=== PATIENT | female | born 1990 | race African-American/Black ===

== ENCOUNTER 2017-06-26 01:09 | Emergency (ER) ==
[2017-06-26 01:15] VITALS: TEMP 97.8; BMI 48.0
--- NOTE | 2017-06-26 01:31 | ED.PDOC ---
General ED Provider: Dr. ELAINE SPAIN Chief Complaint: Chest Pain Stated Complaint: Pateint is a 27 year old who is 27 weeks comes to the ER with complaints of epigastric and right upper quadrant pain for 10 hours. States she ate a humberger last evening. States she usually has high blood pressure during her . She recently seen her OBGYN last week and everything was fine. Time Seen by Physician: 01:28 Mode of Arrival: Walk-In Information Source: Patient Exam Limitations: No limitations Nursing and Triage Documentation Reviewed and Agree: Yes GI Complaint Exam - Abdominal Pain Complaint/Exam Onset: Gradual Duration: 10 hours Symptoms Are: Still present Timing: Constant Initial Severity: Moderate Current Severity: Moderate Location of Pain: RUQ, Epigastric Radiates To: Reports: Chest Character: Reports: Aching, Throbbing Aggravating: Reports: Food Associated Signs and Symptoms: Denies: Diaphoresis, Fever, Cough, Chest pain, Dizziness, Back pain, Constipation, Blood in stool, Dysuria, Urinary frequency, Decreased urine output, Decreased appetite, Vaginal bleeding, Vaginal discharge , Nausea, Vomiting, Diarrhea, Sore throat, Decreased activity Ectopic Risk Factors: Reports: None (currently 27 weeks ) Ovarian Torsion Risk Factors: Reports: None Surgical Obstruction Risk Factors: Reports: None Related Surgical History: Reports: None Patient Rh Status: Unknown Abdominal Findings: Present: Pulsatile mass (Gravid- consistent with days). Absent: Abdominal distention, Rebound tenderness, CVA Tenderness Differential Diagnoses: Gastroenteritis, GB, PUD, UTI Review of Systems - Review Of Systems Constitutional: Reports: No symptoms Eyes: Reports: No symptoms Ears, Nose, Mouth, Throat: Reports: No symptoms Respiratory: Reports: No symptoms Cardiac: Reports: Chest pain (epigastric area ) GI: Reports: Abdominal pain (right upper quadrant and epigastric area ) : Reports: No symptoms Musculoskeletal: Reports: No symptoms Skin: Reports: No symptoms Neurological: Reports: Anxiety Endocrine: Reports: No symptoms Hematologic/Lymphatic: Reports: No symptoms All Other Systems: Reviewed and Negative Past Medical History - Past Medical History Previously Healthy: Yes Endocrine: Reports: None Cardiovascular: Reports: Hypertension (gestational ) Respiratory: Reports: None Hematological: Reports: None Gastrointestinal: Reports: None Genitourinary: Reports: None Neuro/Psych: Reports: None Musculoskeletal: Reports: None Cancer: Reports: None Last Menstrual Period: unkown - Surgical History General Surgical History: Reports: None - Family History Family History: Reports: None - Social History Smoking Status: Never smoker Hx Substance Use: No Alcohol Screening: None - Immunizations Tetanus Shot up to Date: Yes Physical Exam - Physical Exam Appearance: Obese Pain Distress: Mild Neck: Supple Respiratory: Airway patent, Breath sounds clear, Breath sounds equal, Respirations nonlabored Cardiovascular: RRR, Pulses normal, No rub, No murmur GI/: Soft, Tender Musculoskeletal: Normal strength, ROM intact, No edema, No calf tenderness Skin: Warm, Dry, Normal color Neurological: Sensation intact, Motor intact, Reflexes intact, Cranial nerves intact, Alert, Oriented Psychiatric: Anxious Interpretation - EKG Interpretation Time of EKG #1: 01:16 Rate: Normal Rhythm: Sinus Ectopy: None [place]: NL ST Segment: Normal Interpretation: normal EKG Re-Evaluation - Re-Evaluation Time of Re-Evaluation: 01:40 Status: Improved Vital Signs Stable: Yes (168/105, 159/98) Pain Level: chest pain gone after Tylenol Appearance: NAD Lungs: Clear Skin: Warm and Dry Neuro: Alert and Oriented X3 Critical Care Note - Critical Care Note Total Time (mins): 0 Course - Course Hematology/Chemistry: 06/26/17 01:40 06/26/17 01:40 Orders, Labs, Meds: Lab Review 06/26/17 06/26/17 01:40 01:56 WBC 5.48 RBC 4.21 Hgb 10.6 L Hct 32.3 L MCV 76.7 L MCH 25.2 L MCHC 32.8 RDW Coeff of Janna 15.8 H Plt Count 207 Immature Gran % (Auto) 0.4 Neut % (Auto) 58.0 Lymph % (Auto) 27.0 Labette % (Auto) 12.0 H Eos % (Auto) 2.2 Baso % (Auto) 0.4 Immature Gran # (Auto) 0.0 Neut # 3.2 Lymph # 1.5 Labette # 0.7 Eos # 0.1 Baso # 0.0 D-Dimer (Manual) 1440.65 Sodium 138 Potassium 3.6 Chloride 110 H Carbon Dioxide 19 L Anion Gap 12.6 BUN 8 Creatinine 0.75 Estimated GFR (MDRD) 112.00 BUN/Creatinine Ratio 10.66 Glucose 86 Calcium 8.6 Total Bilirubin 0.41 AST 28 ALT 18 Alkaline Phosphatase 106 H Troponin I 0.0350 Total Protein 5.5 L Albumin 1.9 L Globulin 3.6 Albumin/Globulin Ratio 0.53 Urine Color Yellow Urine Clarity Clear Urine pH 7.0 Ur Specific [place] 1.020 Urine Protein 3+ Urine Glucose (UA) Negative Urine Ketones Negative Urine Blood 2+ Urine Nitrite Negative Urine Bilirubin Negative Urine Urobilinogen 0.2 Ur Leukocyte Esterase Negative Urine Microscopic RBC 10-20 Ur Squamous Epith Cells 20-30 Amorphous Sediment 1+ Hyaline Casts 2-5 Granular Casts 5-10 Orders Category Date Time Status CBC W/ AUTO DIFF Stat LAB 06/26/17 01:40 Completed COMPREHENSIVE METABOLIC PANEL Stat LAB 06/26/17 01:40 Completed D-DIMER Stat LAB 06/26/17 01:40 Completed TROPONIN I Stat LAB 06/26/17 01:40 Completed URINALYSIS C & S IF INDICATED Stat LAB 06/26/17 01:56 Completed Acetaminophen [Tylenol] MEDS 06/26/17 01:45 Discontinued 1,000 mg PO ONCE STA Enoxaparin Sodium [Lovenox] MEDS 06/26/17 02:43 Discontinued 140 mg SUBCUT ONCE STA Mag Hydrox/Al Hydrox/Simeth [Mylanta Susp] MEDS 06/26/17 01:35 Discontinued 30 ml PO ONCE STA Medications Discontinued Medications Generic Name Dose Route Start Last Admin Trade Name Freq PRN Reason Stop Dose Admin Acetaminophen 1,000 mg 06/26/17 01:45 06/26/17 01:53 Tylenol PO 06/26/17 01:46 1,000 mg ONCE STA Administration Al Hydroxide/Mg Hydroxide 30 ml 06/26/17 01:35 06/26/17 01:41 Mylanta Susp PO 06/26/17 01:36 30 ml ONCE STA Administration Enoxaparin Sodium 140 mg 06/26/17 02:43 06/26/17 02:55 Lovenox SUBCUT 06/26/17 02:44 140 mg ONCE STA Administration Vital Signs: Temp Pulse Resp BP Pulse Ox 06/26/17 02:12 158/98 H 06/26/17 01:39 168/105 H 06/26/17 01:34 184/118 H 06/26/17 01:10 97.8 F 84 20 184/118 H 98 Departure - Departure Time of Disposition: 01:55 Disposition: HOME SELF-CARE Discharge Problem: Chest pain, Epigastric abdominal pain of unknown etiology Hypertension Qualifiers: Hypertension type: other secondary hypertension Qualifier Code: (I15.8) Other secondary hypertension Instructions: Hypertension (ED), Epigastric Pain (ED) Condition: Good Pt referred to PMD for follow-up: Yes (OBGYN in the morning. ) Additional Instructions: Follow up with OBGYN in the Morning at [facility] we cannot rule out a clot in your lung. Your Doctor should be able to tall you what other test to order. If cannot go back to the OBGYN return to the ER in the morning for US of lower extremities. may Take Tylenol for pain. Avoid Fatty foods for now. Allergies/Adverse Reactions: Allergies No Known Allergies Allergy (Verified 08/29/16 21:35) Home Medications: Ambulatory Orders 1 [No Reported Medications] 08/29/16 Disposition Discussed With: Patient, Family
[2017-06-26] MEDS ORDERED: MYLANTA SUSP PO STA (01:35)
[2017-06-26 01:45] LABS: BASOPHILS % (AUTO) 0.4 % (0.0-3.0); EOSINOPHILS # (AUTO) 0.1 K/ul (0.0-0.7); EOSINOPHILS % (AUTO) 2.2 % (0.0-7.0); HEMATOCRIT 32.3 % (37.0-47.0); HEMOGLOBIN 10.6 g/dl (12.0-16.0); IMMATURE GRANULOCYTE % (AUTO) 0.4 % (0.0-5.0); LYMPHOCYTES # (AUTO) 1.5 K/uL (0.60-3.4); MEAN CORPUSCULAR HEMOGLOBIN 25.2 pg (27.0-31.0); MEAN CORPUSCULAR HGB CONC 32.8 (31.8-35.4); MEAN CORPUSCULAR VOLUME 76.7 fl (81.0-99.0); MONOCYTES # (AUTO) 0.7 K/uL (0.4-2.0); NEUTROPHILS # (AUTO) 3.2 K/ul (2.0-6.9); PLATELET COUNT 207 10^3/uL (140-440); RED BLOOD COUNT 4.21 10^6/ul (4.20-5.40); WHITE BLOOD COUNT 5.48 K/ul (4.6-10.2)
[2017-06-26] MEDS ORDERED: TYLENOL PO STA (01:45)
[2017-06-26 02:05] LABS: ADD URINE MICROSCOPIC YES; BILIRUBIN,URINE Negative (NEGATIVE); KETONES,URINE Negative (NEGATIVE); LEUKOCYTE ESTERASE ,URINE Negative (NEGATIVE); NITRITE,URINE Negative (NEGATIVE); PROTEIN,URINE 3+ (NEGATIVE); URINE, BLOOD 2+ (NEGATIVE)
[2017-06-26 02:10] LABS: ALBUMIN 1.9 g/dL (3.4-5.0); ALBUMIN/GLOBULIN RATIO 0.53; ANION GAP 12.6; BILIRUBIN,TOTAL 0.41 mg/dL (0.00-1.20); BUN/CREATININE RATIO 10.66; CALCIUM 8.6 mg/dL (8.2-10.2); CREATININE 0.75 mg/dL (0.60-1.30); POTASSIUM 3.6 mmol/L (3.5-5.10); TOTAL PROTEIN 5.5 g/dL (6.4-8.2); TROPONIN I 0.035 ng/ml (0.0000-0.4000)
[2017-06-26 02:13] VITALS: BP 158/98
[2017-06-26] MEDS ORDERED: LOVENOX SUBCUT STA (02:43)
== END 2017-06-26 03:03 | disposition home or self-care (01) ==
LOC: ED 01:09
DX: R07.9 Chest pain, unspecified (principal); R10.13 Epigastric pain; R10.11 Right upper quadrant pain; O13.2 Gestational [pregnancy-induced] hypertension without significant proteinuria, second trimester; R60.0 Localized edema
CPT/HCPCS: 36415; 80053; 81001; 84484; 85025; 85379; 96372; 96374; 96376; 99283; 99285

== ENCOUNTER 2017-06-26 08:33 | Emergency (ER) ==
[2017-06-26 08:33] VITALS: BMI 48.0
[2017-06-26 08:46] VITALS: BP 201/154; TEMP 98
--- NOTE | 2017-06-26 08:57 | ED.PDOC ---
General ED Provider: Dr. NOEMI PACHECO JR Chief Complaint: Non-specific Complaint Stated Complaint: note blood pressure 200/154 p 64 fht 147 repeat bp 194/131 note last night was 158/98 abdominal and chest pain unable to contact PMD. : 06/26/17Stated Complaint: Pateint is a 27 year old who is 27 weeks comes to the ER with complaints of epigastric and right upper quadrant pain for 10 hours. States she ate a humberger last evening. States she usually has high blood pressure during her . She recently seen her OBGYN last week and everything was fine. Pain: RUQ, Epigastric Radiates To Chest GI: Reports: Abdominal pain (right upper quadrant and epigastric area ). s: Hypertension ( gestational ) (168/105, 159/98). D-Dimer (Manual) 1440.65 2+. 06/26/17 02:12 158/98 H. 06/26/17 01:39 168/105 H. 06/26/17 01:34 184/118 H. 06/26/17 01:10 97.8 F 84 20 184/118 H 98. : Chest pain, Epigastric abdominal pain of unknown etiology. Pt referred to PMD for follow-up: Yes (OBGYN in the morning. we cannot rule out a clot in your lung. Your Doctor should be able to tall you what other test to order. If cannot go back to the OBGYN return to the ER in the morning for US of lower extremities. Time Seen by Physician: 09:03 Mode of Arrival: Walk-In Information Source: Patient Exam Limitations: No limitations Nursing and Triage Documentation Reviewed and Agree: No Review of Systems - Review Of Systems Constitutional: Reports: Malaise Eyes: Reports: No symptoms Ears, Nose, Mouth, Throat: Reports: No symptoms Respiratory: Reports: No symptoms Cardiac: Reports: Chest pain (right sid3d chst pain and tenderness radiates from RUQ tender over liver more so superiolaterally) GI: Reports: Abdomen distended (gravid, obese), Abdominal pain : Reports: No symptoms, Other (has had hypertension with priolr pregnancies) Musculoskeletal: Reports: No symptoms Skin: Reports: No symptoms Neurological: Reports: No symptoms Endocrine: Reports: No symptoms Hematologic/Lymphatic: Reports: No symptoms All Other Systems: Other Past Medical History - Past Medical History Previously Healthy: Yes Endocrine: Reports: None Cardiovascular: Reports: Hypertension (gestational ) Respiratory: Reports: None Hematological: Reports: None Gastrointestinal: Reports: None Genitourinary: Reports: None Neuro/Psych: Reports: None Musculoskeletal: Reports: None Cancer: Reports: None Last Menstrual Period: november 2016 - Surgical History General Surgical History: Reports: None - Family History Family History: Reports: None - Social History Smoking Status: Never smoker Hx Substance Use: No Alcohol Screening: None Physical Exam - Physical Exam Appearance: Well-appearing, Obese Pain Distress: Moderate Eyes: DONTA, EOMI, Conjunctiva clear ENT: Ears normal, Nose normal, Oropharynx normal Neck: Supple Respiratory: Airway patent, Breath sounds clear, Breath sounds equal, Respirations nonlabored Cardiovascular: RRR, Pulses normal, No rub, No murmur GI/: Soft, No masses, Bowel sounds normal, Hepatomegaly (palpable tender not clinically enlarged) Musculoskeletal: Normal strength, ROM intact, No calf tenderness, Edema (2+ pitting edema to knees) Skin: Warm, Dry, Normal color Neurological: Sensation intact, Motor intact, Reflexes intact, Cranial nerves intact, Alert, Oriented (no headache) Psychiatric: Affect appropriate, Mood appropriate Physician Notification - Case Discussed Physician Notified: disc with RN at [facility]- Per Dr Alan Cabrera send for admission march Time of Notification: 09:04 (admit- give 20 labetalol IV(Any)) Critical Care Note - Critical Care Note Total Time (mins): 0 Course - Course Orders, Labs, Meds: Orders Category Date Time Status Labetalol HCl [Trandate] MEDS 06/26/17 09:02 Discontinued 20 mg IVP ONCE STA Lidocaine HCl/Pf [Lidocaine 1 % Amp 5 ml (Sutures)] MEDS 06/26/17 09:13 Stop Req 5 ml SUBCUT ONCE STA Medications Discontinued Medications Generic Name Dose Route Start Last Admin Trade Name Freq PRN Reason Stop Dose Admin Labetalol HCl 20 mg 06/26/17 09:02 06/26/17 09:18 Trandate IVP 06/26/17 09:03 20 mg ONCE STA Administration Vital Signs: Temp Pulse Resp BP Pulse Ox 06/26/17 08:34 98.0 F 71 20 201/154 H 98 MAEVE Risk Score MAEVE Risk Score: Risk Score Odds of by 30D 0 0.1 (0.1-0.2) 1 0.3 (0.2-0.3) 2 0.4 (0.3-0.5) 3 0.7 (0.6-0.9) 4 1.2 (1.0-1.5) 5 2.2 (1.9-2.6) 6 3.0 (2.5-3.6) 7 4.8 (3.8-6.1) Departure - Departure Time of Disposition: 09:08 Disposition: HOME SELF-CARE Discharge Problem: Hypertension, induced hypertension Condition: Fair Pt referred to PMD for follow-up: Yes ([employer] [facility]) Allergies/Adverse Reactions: Allergies No Known Allergies Allergy (Verified 06/26/17 08:42) Home Medications: Ambulatory Orders Qtt121/FA/Omega3/Dha/Fish Oil [ Gummies] 1 each PO DAILY 06/26/17
[2017-06-26] MEDS ORDERED: TRANDATE IVP STA ×2 (09:02→10:01)
[2017-06-26] MEDS ORDERED: LIDOCAINE 1 % AMP 5 ML (SUTURES) SUBCUT STA (09:13)
== END 2017-06-26 10:05 | disposition short-term general hospital (02) ==
LOC: ED 08:33
DX: O13.2 Gestational [pregnancy-induced] hypertension without significant proteinuria, second trimester (principal); R07.9 Chest pain, unspecified; R10.11 Right upper quadrant pain; R60.0 Localized edema
CPT/HCPCS: 96374; 96376; 99285